=== PATIENT | female | born 1945 | race Hispanic/Latino ===

== ENCOUNTER → 2023-10-18 | Outpatient (REF) | payer MEDICARE ==
[~2023-10-18] MED LIST: AMLODIPINE BESY10 MG PO; BENAZEPRIL HCL10 MG PO; DIATRIZOATE MEGL/DIATRIZOA SOD 30 ML BTL PO ONE; DICYCLOMINE HCL10 MG PO; IOPAMIDOL 370 MG/ML 100 ML INFUS..BTL INJ ONE; PANTOPRAZOLE SO40 MG PO
[2023-10-18 12:56] LABS: CREATININE, SERUM 0.68 mg/dL (0.57-1.11)
== END ==
LOC: CT 11:21
PROVIDERS: ATTEND Nurse Practitioner
DX: R10.32 Left lower quadrant pain (principal); D64.89 Other specified anemias; R63.4 Abnormal weight loss; R63.0 Anorexia
CPT/HCPCS: 36415; 74177; 82565; 84520; Q9963; Q9967

== ENCOUNTER → 2024-05-07 | Day surgery (SDC) | payer MEDICARE ==
[~2024-05-07] MED LIST changes: +ASPIRIN EC81 MG PO; +B12 ACTIVE1000 MCG IM; +CALTRATE GUMMY1 EACH PO; +CILOSTAZOL50 MG PO; -DIATRIZOATE MEGL/DIATRIZOA SOD 30 ML BTL PO ONE; +FOLIC ACID0.4 MG PO; +HYOSCYAMINE SULFATE 0.5 MG/ML INJ ONE; +INTEGRA F CAPS1 EACH PO; -IOPAMIDOL 370 MG/ML 100 ML INFUS..BTL INJ ONE; +JARDIANCE10 MG PO; +LOSARTAN POTAS100 MG PO; +NIFEDIPINE ER30 M1 PO; +PROBIOTIC & AC1 EACH PO; +VITAMIN D PO
[2024-05-07] MEDS: LACTATED RINGER'S 1,000 ML ONE (12:55)
[2024-05-07 13:40] LABS: BASOPHILS % 0.3 % (0.0-1.0); EOSINOPHILS % 0.4 % (0.0-6.0); HEMATOCRIT 24.6 % (34.2-44.1); LYMPHOCYTES # (AUTO) 1.5 (1.0-3.2); LYMPHOCYTES % 21.4 % (18.0-39.1); MEAN CORPUSCULAR HGB CONC 32.5 g/dL (31-35); MEAN CORPUSCULAR VOLUME 104.7 fL (81-99); MONOCYTES # (AUTO) 0.6 (0.2-0.8); MONOCYTES % 8.3 % (4.4-11.3); NEUTROPHILS # (AUTO) 4.8 (2.1-6.9); NEUTROPHILS % 68.9 % (38.7-80.0); PLATELET COUNT 456 x10e3/uL (140-360); RED BLOOD COUNT 2.35 x10e6/uL (3.6-5.1); WHITE BLOOD COUNT 7.01 x10e3/uL (4.8-10.8)
[2024-05-07 16:16] VITALS: TEMP 97.6
[2024-05-07 16:45] VITALS: BP 171/58; PULSE 57; RESP 16; O2SAT 98
[2024-05-07 17:08] LABS: CDIFF AG QUIK CHEK NEGATIVE (NEGATIVE); CDIFF TOX QUIK CHEK NEGATIVE (NEGATIVE); WBC,FECAL (FECAL LACTOFERRIN) NEGATIVE (NEGATIVE)
[2024-05-08 07:54] LABS: C-REACTIVE PROTEIN 1 mg/L (0-10)
[2024-05-10 07:24] LABS: ENDOMYSIAL ANTIBODIES, IGA Negative (Negative)
[2024-05-10 09:07] LABS: IMMUNOGLOBULIN A 139 mg/dL (64-422); TISSUE TRANSGLUTAMINASE IGA AB <2 U/mL (0-3)
== END | disposition home or self-care (01) ==
LOC: OR 11:19
PROVIDERS: ATTEND Internal Medicine Gastroenterology
DX: D64.89 Other specified anemias (principal); D12.4 Benign neoplasm of descending colon; K29.50 Unspecified chronic gastritis without bleeding; K31.89 Other diseases of stomach and duodenum; K51.50 Left sided colitis without complications; K20.90 Esophagitis, unspecified without bleeding; K21.9 Gastro-esophageal reflux disease without esophagitis; K44.9 Diaphragmatic hernia without obstruction or gangrene; K62.89 Other specified diseases of anus and rectum; Z71.3 Dietary counseling and surveillance; R63.4 Abnormal weight loss; E11.9 Type 2 diabetes mellitus without complications; I10 Essential (primary) hypertension; Z71.89 Other specified counseling; M81.0 Age-related osteoporosis without current pathological fracture; E78.00 Pure hypercholesterolemia, unspecified; Z79.84 Long term (current) use of oral hypoglycemic drugs; Z79.82 Long term (current) use of aspirin; Z79.899 Other long term (current) drug therapy; Z87.11 Personal history of peptic ulcer disease; Z87.19 Personal history of other diseases of the digestive system; Z80.0 Family history of malignant neoplasm of digestive organs
CPT/HCPCS: 36415; 43239; 45380; 45385; 82607; 82746; 82784; 82948; 83516; 83630; 83993; 85025; 86140; 86256; 87045; 87177; 87324; 87328; 87449; 93005; J1980; J2470; J7121; 45378

== ENCOUNTER 2024-08-12 05:49 | Inpatient (IN) | payer MEDICARE ==
[~2024-08-12] VITALS: Ht 149.9 cm; Wt 38.6 kg
[~2024-08-12 05:49] MED LIST changes: -HYOSCYAMINE SULFATE 0.5 MG/ML INJ ONE
[2024-08-12 06:05] VITALS: PULSE 81; RESP 18
[2024-08-12 06:30] LABS: BASOPHILS % 0.2 % (0.0-1.0); HEMATOCRIT 23.2 % (34.2-44.1); HEMOGLOBIN 7.6 g/dL (12.0-16.0); LYMPHOCYTES % 19.6 % (18.0-39.1); MEAN CORPUSCULAR HEMOGLOBIN 35.2 pg (28-32); MEAN CORPUSCULAR HGB CONC 32.8 g/dL (31-35); MEAN CORPUSCULAR VOLUME 107.4 fL (81-99); MONOCYTES # (AUTO) 0.6 (0.2-0.8); MONOCYTES % 11.3 % (4.4-11.3); NEUTROPHILS # (AUTO) 3.5 (2.1-6.9); NEUTROPHILS % 68.5 % (38.7-80.0); PLATELET COUNT 356 x10e3/uL (140-360); RED BLOOD COUNT 2.16 x10e6/uL (3.6-5.1); RED CELL DISTRIBUTION WIDTH 17.5 % (11.7-14.4); WHITE BLOOD COUNT 5.14 x10e3/uL (4.8-10.8)
[2024-08-12 06:47] LABS: INR 1.16; PROTHROMBIN TIME 15.5 seconds (11.9-14.5)
[2024-08-12 06:48] LABS: CLARITY,URINE CLEAR (CLEAR); COLOR,URINE AMBER (YELLOW); LEUKOCYTE ESTERASE ,URINE NEGATIVE (NEGATIVE); NITRITE,URINE NEGATIVE (NEGATIVE); PH,URINE 6 (5 - 7); PROTEIN,URINE DIPSTICK >=300 (NEGATIVE)
[2024-08-12 06:48] LABS: PARTIAL THROMBOPLASTIN TIME 20.3 seconds (23.8-35.5)
[2024-08-12 06:49] LABS: BILIRUBIN,URINE SMALL (NEGATIVE); GLUCOSE, URINE 2+ (NEGATIVE); KETONES,URINE NEGATIVE (NEGATIVE); URINE UROBILINOGEN 0.2 mg/dL (0.2 - 1)
[2024-08-12 06:51] LABS: BACTERIA,URINE MANY /HPF; EPITHELIAL CELLS,URINE FEW /LPF; MUCUS,URINE MODERATE; RBC,URINE 0-5 /HPF (0-5)
[2024-08-12 06:58] LABS: ALBUMIN 3.1 g/dL (3.5-5.0); ALBUMIN/GLOBULIN RATIO 0.8 (0.8-2.0); ANION GAP 16.3 mmol/L (8-16); CALCIUM 9.1 mg/dL (8.4-10.2); CREATININE, SERUM 0.7 mg/dL (0.57-1.11); MAGNESIUM 1.3 MG/DL (1.3-2.1); TOTAL PROTEIN 6.8 g/dL (6.5-8.1)
[2024-08-12 07:03] LABS: TROPONIN I 0.049 ng/mL (0-0.300)
[2024-08-12 07:07] LABS: POTASSIUM 3.3 mmol/L (3.5-5.1)
[2024-08-12] MEDS: ONDANSETRON HCL INJ 2MG/ML 2ML 2 MG/ML VIAL IV STA (07:31)
[2024-08-12] MEDS: SODIUM CHLORIDE 0.9% 1000ML 1,000 ML IV STA (07:32)
[2024-08-12] MEDS ORDERED: ONDANSETRON HCL INJ 2MG/ML 2ML 2 MG/ML VIAL IV PRN (09:15)
[2024-08-12] MEDS: SODIUM CHLORIDE 0.9% 1000ML 1,000 ML IV SCH (09:30)
[2024-08-12 09:45] LABS: FOLATE 18.8 ng/mL (7.0-15.4)
[2024-08-12 10:40] LABS: FERRITIN 191.94 ng/mL (4.63-204.00)
[2024-08-12 12:50] VITALS: BP 156/42; PULSE 92; RESP 16; TEMP 97.9; O2SAT 98
[2024-08-12] MEDS: MAGNESIUM SULFATE 2GM/50ML 50 ML IV ONE (13:27)
[2024-08-12 16:35] LABS: TROPONIN I 0.06 ng/mL (0-0.300)
[2024-08-12 17:08] VITALS: BP 136/34; PULSE 85; RESP 19; TEMP 100.6; O2SAT 100
[2024-08-12 20:15] VITALS: BP 159/66; PULSE 94; RESP 21; TEMP 99.6; O2SAT 99
[2024-08-12 20:38] LABS: TROPONIN I 0.047 ng/mL (0-0.300)
[2024-08-12 22:20] VITALS: BP 159/66; PULSE 94; RESP 21; TEMP 99.6; O2SAT 99
[2024-08-13] VITALS (7 sets, daily range): BP systolic 123–140; BP diastolic 41–51; PULSE 72–85; RESP 18–21; TEMP 97.4–99.1; O2SAT 97–100
[2024-08-13] MEDS: METOCLOPRAMIDE HCL 10 MG/2ML VIAL IV ONE (00:11)
[2024-08-13 05:34] LABS: BASOPHILS % 0.2 % (0.0-1.0); EOSINOPHILS # (AUTO) 0.1 (0.0-0.4); EOSINOPHILS % 0.5 % (0.0-6.0); HEMATOCRIT 28.5 % (34.2-44.1); HEMOGLOBIN 9.2 g/dL (12.0-16.0); LYMPHOCYTES # (AUTO) 1.9 (1.0-3.2); LYMPHOCYTES % 12.6 % (18.0-39.1); MEAN CORPUSCULAR HEMOGLOBIN 29.3 pg (28-32); MEAN CORPUSCULAR HGB CONC 32.3 g/dL (31-35); MEAN CORPUSCULAR VOLUME 90.8 fL (81-99); MONOCYTES # (AUTO) 0.8 (0.2-0.8); MONOCYTES % 5.2 % (4.4-11.3); NEUTROPHILS # (AUTO) 11.9 (2.1-6.9); NEUTROPHILS % 80.8 % (38.7-80.0); PLATELET COUNT 281 x10e3/uL (140-360); RED BLOOD COUNT 3.14 x10e6/uL (3.6-5.1)
[2024-08-13 06:05] LABS: ALBUMIN 2.8 g/dL (3.5-5.0); ALBUMIN/GLOBULIN RATIO 0.7 (0.8-2.0); ANION GAP 16.7 mmol/L (8-16); BILIRUBIN,TOTAL 0.8 mg/dL (0.2-1.2); CALCIUM 9.4 mg/dL (8.4-10.2); CREATININE, SERUM 1.67 mg/dL (0.57-1.11); POTASSIUM 3.7 mmol/L (3.5-5.1); TOTAL PROTEIN 6.6 g/dL (6.5-8.1)
[2024-08-13] MEDS: IRON SUCROSE 100 MG in SODIUM CHLORIDE 0.9% 100 ML IV SCH (09:30)
[2024-08-13] MEDS: METOCLOPRAMIDE HCL 10 MG/2ML VIAL IV SCH (09:30)
[2024-08-13] MEDS ORDERED: DEXTROSE 50% SYRINGE 50 ML IV PRN (10:00)
[2024-08-13] MEDS ORDERED: MAGNESIUM SULFATE 2GM/50ML IV ONE (10:00)
[2024-08-13 10:37] LABS: CDIFF AG QUIK CHEK NEGATIVE (NEGATIVE); CDIFF TOX QUIK CHEK NEGATIVE (NEGATIVE)
[2024-08-13] MEDS: INSULIN LISPRO 100 UNIT/1 ML 3ML VIAL SQ SCH (11:30)
[2024-08-13] MEDS: METRONIDAZOLE 500MG/NS 100ML 100 ML IV SCH (11:57)
[2024-08-13] MEDS: VANCOMYCIN HCL 125 MG CAPSULE PO SCH (11:58)
[2024-08-13] MEDS: DICYCLOMINE HCL 10 MG CAP PO SCH (11:58)
[2024-08-13] MEDS: MAGNESIUM SULFATE 2GM/50ML 50 ML IV ONE (15:25)
[2024-08-13] MEDS: LACTOBACILLUS ACIDOPHILUS CAPSULE PO SCH (17:04)
[2024-08-13] MEDS: CILOSTAZOL 100 MG TAB PO SCH (17:05)
[2024-08-14] VITALS (9 sets, daily range): BP systolic 110–152; BP diastolic 47–72; PULSE 55–92; RESP 17–20; TEMP 97.5–98.8; O2SAT 93–100
[2024-08-14] MEDS: DIPHENOXYLATE/ATROPINE TAB PO ONE (01:13)
[2024-08-14 07:24] LABS: PHOSPHORUS 1.7 MG/DL (2.3-4.7)
[2024-08-14 07:37] LABS: ANION GAP 10.2 mmol/L (8-16); CALCIUM 7.3 mg/dL (8.4-10.2); CREATININE, SERUM 0.57 mg/dL (0.57-1.11)
[2024-08-14 07:43] LABS: POTASSIUM 2.2 mmol/L (3.5-5.1)
[2024-08-14 08:31] LABS: BASOPHILS % 0.2 % (0.0-1.0); EOSINOPHILS # (AUTO) 0.1 (0.0-0.4); EOSINOPHILS % 1.5 % (0.0-6.0); LYMPHOCYTES # (AUTO) 1.2 (1.0-3.2); MEAN CORPUSCULAR HGB CONC 31.8 g/dL (31-35); MEAN CORPUSCULAR VOLUME 110.2 fL (81-99); MONOCYTES # (AUTO) 0.4 (0.2-0.8); MONOCYTES % 8.8 % (4.4-11.3); NEUTROPHILS # (AUTO) 3.1 (2.1-6.9); NEUTROPHILS % 64.5 % (38.7-80.0); PLATELET COUNT 368 x10e3/uL (140-360); RED BLOOD COUNT 1.77 x10e6/uL (3.6-5.1); WHITE BLOOD COUNT 4.79 x10e3/uL (4.8-10.8)
[2024-08-14] MEDS: IRON SUCROSE 100 MG in SODIUM CHLORIDE 0.9% 100 ML IV SCH (09:00)
[2024-08-14 09:01] LABS: HEMATOCRIT 19.5 % (34.2-44.1); HEMOGLOBIN 6.2 g/dL (12.0-16.0)
[2024-08-14] MEDS: SOD CHL 0.45%/POT CHL 20MEQ 1,000 ML IV SCH (09:16)
[2024-08-14] MEDS: FOLIC ACID 1 MG TAB PO SCH (09:18)
[2024-08-14] MEDS: EMPAGLIFLOZIN 10 MG TABLET PO SCH (09:18)
[2024-08-14] MEDS: ASPIRIN 81 MG ENTERIC COATED PO SCH (09:18)
[2024-08-14] MEDS: NIFEDIPINE CR 30 MG TAB PO SCH (09:20)
[2024-08-14] MEDS: DICYCLOMINE HCL 20 MG TAB PO SCH (09:20)
[2024-08-14] MEDS: POTASSIUM CHLORIDE 10MEQ EA PO SCH (09:21)
[2024-08-14] MEDS ORDERED: ACETAMINOPHEN 325 MG TAB PO STA (09:43)
[2024-08-14] MEDS ORDERED: DIPHENHYDRAMINE HCL INJ 50 MG/ML VIAL IV ONE (09:45)
[2024-08-14] MEDS ORDERED: FAMOTIDINE 20 MG/2 ML VIAL IV ONE (09:45)
[2024-08-14] MEDS ORDERED: DEXAMETHASONE SOD PHOS 10 MG/1 ML VIAL IV ONE (09:45)
[2024-08-14] MEDS: MAGNESIUM SULFATE 2GM/50ML 50 ML IV ONE (12:33)
[2024-08-14] MEDS: POTASSIUM PHOSPHATE 30 MM in SODIUM CHLORIDE 0.9% 250ML 250 ML IV ONE (14:41)
[2024-08-14] MEDS: DEXAMETHASONE SOD PHOS 10 MG/1 ML VIAL IV ONE (15:55)
[2024-08-14] MEDS: FAMOTIDINE 20 MG/2 ML VIAL IV ONE (15:55)
[2024-08-14] MEDS: DIPHENHYDRAMINE HCL INJ 50 MG/ML VIAL IV ONE (15:55)
[2024-08-14] MEDS: ACETAMINOPHEN 325 MG TAB PO ONE (15:56)
[2024-08-14] MEDS: FUROSEMIDE INJ 10 MG/ML 2 ML VIAL IV PRN (20:04)
[2024-08-15] VITALS (7 sets, daily range): BP systolic 94–191; BP diastolic 60–76; PULSE 70–81; RESP 18–20; TEMP 97.3–97.9; O2SAT 98–100
[2024-08-15] MEDS: SODIUM CHLORIDE 0.9% 250ML 250 ML IV ONE (06:59)
[2024-08-15] MEDS: SODIUM CHLORIDE 0.9% 250ML 250 ML ONE ×2 (06:59)
[2024-08-15 13:21] LABS: ANION GAP 16.2 mmol/L (8-16); CALCIUM 8.2 mg/dL (8.4-10.2); CREATININE, SERUM 0.65 mg/dL (0.57-1.11); MAGNESIUM 1.7 MG/DL (1.3-2.1); PHOSPHORUS 3.1 MG/DL (2.3-4.7); POTASSIUM 4.2 mmol/L (3.5-5.1)
[2024-08-15 14:54] LABS: BASOPHILS % 0.2 % (0.0-1.0); EOSINOPHILS % 0.3 % (0.0-6.0); HEMATOCRIT 33.4 % (34.2-44.1); HEMOGLOBIN 11.3 g/dL (12.0-16.0); LYMPHOCYTES # (AUTO) 1.6 (1.0-3.2); MEAN CORPUSCULAR HEMOGLOBIN 32.2 pg (28-32); MEAN CORPUSCULAR HGB CONC 33.8 g/dL (31-35); MEAN CORPUSCULAR VOLUME 95.2 fL (81-99); MONOCYTES % 7.9 % (4.4-11.3); NEUTROPHILS # (AUTO) 10.3 (2.1-6.9); NEUTROPHILS % 78.6 % (38.7-80.0); PLATELET COUNT 332 x10e3/uL (140-360); RED BLOOD COUNT 3.51 x10e6/uL (3.6-5.1); RED CELL DISTRIBUTION WIDTH 19.2 % (11.7-14.4); WHITE BLOOD COUNT 13.13 x10e3/uL (4.8-10.8)
[2024-08-15] MEDS: NIFEDIPINE CR 30 MG TAB PO SCH (16:17)
[2024-08-16] VITALS: BP 158/70; PULSE 92; RESP 19; TEMP 99; O2SAT 97
[2024-08-16] MEDS: ACETAMINOPHEN 325 MG TAB PO PRN (00:37)
[2024-08-16 04:00] VITALS: BP 140/51; PULSE 81; RESP 20; TEMP 98.7; O2SAT 98
[2024-08-16 06:43] LABS: BASOPHILS % 0.2 % (0.0-1.0); EOSINOPHILS % 0.3 % (0.0-6.0); HEMATOCRIT 31.4 % (34.2-44.1); HEMOGLOBIN 10.4 g/dL (12.0-16.0); LYMPHOCYTES # (AUTO) 1.2 (1.0-3.2); LYMPHOCYTES % 18.3 % (18.0-39.1); MEAN CORPUSCULAR HEMOGLOBIN 32.5 pg (28-32); MEAN CORPUSCULAR HGB CONC 33.1 g/dL (31-35); MEAN CORPUSCULAR VOLUME 98.1 fL (81-99); MONOCYTES # (AUTO) 0.7 (0.2-0.8); MONOCYTES % 11.2 % (4.4-11.3); NEUTROPHILS # (AUTO) 4.5 (2.1-6.9); NEUTROPHILS % 69.1 % (38.7-80.0); PLATELET COUNT 280 x10e3/uL (140-360); RED CELL DISTRIBUTION WIDTH 19.1 % (11.7-14.4); WHITE BLOOD COUNT 6.51 x10e3/uL (4.8-10.8)
[2024-08-16 07:09] LABS: ANION GAP 10.7 mmol/L (8-16); CALCIUM 7.8 mg/dL (8.4-10.2); CREATININE, SERUM 0.58 mg/dL (0.57-1.11); POTASSIUM 3.7 mmol/L (3.5-5.1)
[2024-08-16 07:57] VITALS: BP 140/51; PULSE 81; RESP 20; TEMP 98.7; O2SAT 98
[2024-08-16 08:30] VITALS: BP 179/42; PULSE 75; RESP 20; TEMP 98.2; O2SAT 97
[2024-08-16 12:21] VITALS: BP 160/61; PULSE 77; RESP 18; TEMP 97.6; O2SAT 100
== END 2024-08-16 12:04 | disposition home or self-care (01) | DRG 872 ==
LOC: ER 06:08 → ERHOLD 09:17 → MED/SURG3 11:59
PROVIDERS: ADMIT Internal Medicine; ATTEND Internal Medicine
PROC: 3E03329 Introduction of Other Anti-infective into Peripheral Vein, Percutaneous Approach (ICD-10-PCS; 2024-08-12)
PROC: 30233N1 Transfusion of Nonautologous Red Blood Cells into Peripheral Vein, Percutaneous Approach (ICD-10-PCS; principal; 2024-08-14)
DX: A41.51 Sepsis due to Escherichia coli [E. coli] (principal); N39.0 Urinary tract infection, site not specified; Z68.1 Body mass index [BMI] 19.9 or less, adult; A09 Infectious gastroenteritis and colitis, unspecified; E86.0 Dehydration; E87.6 Hypokalemia; E83.39 Other disorders of phosphorus metabolism; D50.9 Iron deficiency anemia, unspecified; E87.8 Other disorders of electrolyte and fluid balance, not elsewhere classified; D46.9 Myelodysplastic syndrome, unspecified; E83.51 Hypocalcemia; I10 Essential (primary) hypertension; E11.51 Type 2 diabetes mellitus with diabetic peripheral angiopathy without gangrene; Z79.84 Long term (current) use of oral hypoglycemic drugs; Z71.3 Dietary counseling and surveillance; E78.5 Hyperlipidemia, unspecified; Z79.899 Other long term (current) drug therapy; Z79.82 Long term (current) use of aspirin; Z90.49 Acquired absence of other specified parts of digestive tract; Z95.2 Presence of prosthetic heart valve; Z89.512 Acquired absence of left leg below knee
CPT/HCPCS: 36415; 71045; 74176; 80048; 80053; 81001; 82550; 82607; 82728; 82746; 82948; 83036; 83540; 83630; 83690; 83735; 83993; 84100; 84466; 84484; 85025; 85610; 85730; 86850; 86900; 86920; 87045; 87086; 87177; 87186; 87324; 87449; 93005; 99252; 99285; J0696; J1100; J1200; J1756; J1940; J2405; J2470; J2543; J2765; J3475; J7030; J7050; P9016

== ENCOUNTER 2024-12-11 17:04 | Inpatient (IN) | payer MEDICARE ==
[~2024-12-11] VITALS: Ht 149.9 cm; Wt 37.6 kg
[~2024-12-11 17:04] MED LIST changes: +B12 PO; +COLESTIPOL HCL1 GM PO; +WEEKLY-D1250 MCG PO
[2024-12-11 17:17] VITALS: TEMP 98.6
[2024-12-11 18:54] LABS: BASOPHILS % 0.1 % (0.0-1.0); EOSINOPHILS % 0.3 % (0.0-6.0); HEMOGLOBIN 7.5 g/dL (12.0-16.0); LYMPHOCYTES # (AUTO) 2.7 (1.0-3.2); LYMPHOCYTES % 35.5 % (18.0-39.1); MEAN CORPUSCULAR HEMOGLOBIN 30.5 pg (28-32); MEAN CORPUSCULAR HGB CONC 32.8 g/dL (31-35); MEAN CORPUSCULAR VOLUME 93.1 fL (81-99); MONOCYTES # (AUTO) 0.6 (0.2-0.8); MONOCYTES % 7.5 % (4.4-11.3); NEUTROPHILS # (AUTO) 4.3 (2.1-6.9); NEUTROPHILS % 55.9 % (38.7-80.0); PLATELET COUNT 279 x10e3/uL (140-360); RED BLOOD COUNT 2.46 x10e6/uL (3.6-5.1); RED CELL DISTRIBUTION WIDTH 19.3 % (11.7-14.4); WHITE BLOOD COUNT 7.63 x10e3/uL (4.8-10.8)
[2024-12-11 18:56] LABS: HEMATOCRIT 22.9 % (34.2-44.1)
[2024-12-11 19:14] LABS: ALBUMIN 2.3 g/dL (3.5-5.0); ALBUMIN/GLOBULIN RATIO 0.7 (0.8-2.0); ANION GAP 12.3 mmol/L (8-16); BILIRUBIN,TOTAL 1.1 mg/dL (0.2-1.2); CALCIUM 7.8 mg/dL (8.4-10.2); CREATININE, SERUM 0.56 mg/dL (0.57-1.11); POTASSIUM 3.3 mmol/L (3.5-5.1); TOTAL PROTEIN 5.6 g/dL (6.5-8.1)
[2024-12-11] MEDS ORDERED: HEPARIN SOD/DEXTROSE 5% 25000 UNIT/250 ML BAG IV SCH (19:15)
[2024-12-11 19:16] LABS: INR 1.1; PROTHROMBIN TIME 15.2 seconds (11.9-14.5)
[2024-12-11 19:17] LABS: PARTIAL THROMBOPLASTIN TIME 32.3 seconds (23.8-35.5)
[2024-12-11 19:19] LABS: TROPONIN I 0.057 ng/mL (0-0.300)
[2024-12-11 19:30] VITALS: PULSE 55; RESP 12
[2024-12-11] MEDS ORDERED: Morphine 4mg INJECTION 4 MG/ML INJ IV PRN (19:45)
[2024-12-11] MEDS ORDERED: ONDANSETRON HCL INJ 2MG/ML 2ML 2 MG/ML VIAL IV PRN (19:45)
[2024-12-11] MEDS: HEPARIN SOD (PORCINE) 5,000 UNIT/ML VIAL IV ONE (20:03)
[2024-12-11] MEDS: HEPARIN 25,000 UNIT/D5W 250ML 250 ML IV SCH (21:14)
[2024-12-11 21:37] VITALS: BP 153/54; PULSE 91; RESP 16; TEMP 98.1; O2SAT 100
[2024-12-11 21:43] VITALS: BP 153/54; PULSE 91; RESP 16; TEMP 98.1; O2SAT 100
[2024-12-11 22:04] VITALS: BP 153/54; PULSE 91; RESP 18; TEMP 98.1; O2SAT 99
[2024-12-12] VITALS (7 sets, daily range): BP systolic 110–146; BP diastolic 40–53; PULSE 75–96; RESP 16–17; TEMP 97.6–98.1; O2SAT 96–99
[2024-12-12 06:06] LABS: BASOPHILS % 0.3 % (0.0-1.0); EOSINOPHILS % 0.3 % (0.0-6.0); LYMPHOCYTES # (AUTO) 1.9 (1.0-3.2); LYMPHOCYTES % 27.8 % (18.0-39.1); MEAN CORPUSCULAR HEMOGLOBIN 30.6 pg (28-32); MEAN CORPUSCULAR HGB CONC 33.2 g/dL (31-35); MEAN CORPUSCULAR VOLUME 92.3 fL (81-99); MONOCYTES # (AUTO) 0.5 (0.2-0.8); MONOCYTES % 7.2 % (4.4-11.3); NEUTROPHILS # (AUTO) 4.4 (2.1-6.9); PLATELET COUNT 294 x10e3/uL (140-360); RED BLOOD COUNT 2.35 x10e6/uL (3.6-5.1); RED CELL DISTRIBUTION WIDTH 19.9 % (11.7-14.4); WHITE BLOOD COUNT 6.81 x10e3/uL (4.8-10.8)
[2024-12-12 06:14] LABS: HEMATOCRIT 21.7 % (34.2-44.1); HEMOGLOBIN 7.2 g/dL (12.0-16.0)
[2024-12-12 06:40] LABS: ALBUMIN 1.9 g/dL (3.5-5.0); ALBUMIN/GLOBULIN RATIO 0.7 (0.8-2.0); ANION GAP 12.7 mmol/L (8-16); CALCIUM 7.2 mg/dL (8.4-10.2); CREATININE, SERUM 0.52 mg/dL (0.57-1.11); TOTAL PROTEIN 4.7 g/dL (6.5-8.1)
[2024-12-12 06:47] LABS: POTASSIUM 2.7 mmol/L (3.5-5.1)
[2024-12-12 07:09] LABS: TROPONIN I 0.052 ng/mL (0-0.300)
[2024-12-12] MEDS ORDERED: FUROSEMIDE INJ 10 MG/ML 2 ML VIAL IV PRN (08:45)
[2024-12-12] MEDS: NIFEDIPINE CR 30 MG TAB PO SCH (09:00)
[2024-12-12] MEDS: AMIODARONE HCL 200 MG TAB PO SCH (09:00)
[2024-12-12] MEDS: COLESTIPOL HCL 1 G TAB PO SCH (09:00)
[2024-12-12] MEDS: EMPAGLIFLOZIN 10 MG TABLET PO SCH (09:00)
[2024-12-12] MEDS ORDERED: APIXABAN 5 MG TABLET PO SCH ×2 (09:00)
[2024-12-12] MEDS: PANTOPRAZOLE SOD 40 MG TABEC PO SCH (09:00)
[2024-12-12] MEDS: CILOSTAZOL 100 MG TAB PO SCH (09:00)
[2024-12-12] MEDS: NON-FORMULARY MEDICATION (Folic Acid* 1 MG) PO SCH (09:00)
[2024-12-12 09:11] LABS: PHOSPHORUS 2.4 MG/DL (2.3-4.7)
[2024-12-12 09:54] LABS: MAGNESIUM 0.6 MG/DL (1.3-2.1)
[2024-12-12] MEDS: LACTOBACILLUS ACIDOPHILUS CAPSULE PO SCH (10:40)
[2024-12-12] MEDS: POTASSIUM CHLORIDE 10MEQ EA PO SCH (10:40)
[2024-12-12] MEDS: MAGNESIUM SULFATE 2GM/50ML 50 ML IV ONE ×2 (10:49→13:03)
[2024-12-12] MEDS: SODIUM CHLORIDE 0.9% 250ML 250 ML IV ONE (10:49)
[2024-12-12] MEDS: EPOETIN ALFA-EPBX 10,000 UNIT/ML VIAL SC ONE (13:03)
[2024-12-12 14:10] LABS: CDIFF AG QUIK CHEK NEGATIVE (NEGATIVE); CDIFF TOX QUIK CHEK NEGATIVE (NEGATIVE)
[2024-12-12 14:25] LABS: COLOR,URINE YELLOW (YELLOW)
[2024-12-12 14:26] LABS: CLARITY,URINE TURBID (CLEAR); LEUKOCYTE ESTERASE ,URINE SMALL (NEGATIVE); NITRITE,URINE NEGATIVE (NEGATIVE); PH,URINE 5.5 (5 - 7); PROTEIN,URINE DIPSTICK 2+ (NEGATIVE)
[2024-12-12 14:27] LABS: BILIRUBIN,URINE SMALL (NEGATIVE); GLUCOSE, URINE 500 (NEGATIVE); KETONES,URINE TRACE (NEGATIVE); URINE UROBILINOGEN 0.2 mg/dL (0.2 - 1)
[2024-12-12 14:36] LABS: BACTERIA,URINE MANY /HPF; RBC,URINE 0-5 /HPF (0-5); WBC,URINE (MAN) >50 /HPF (0-5)
[2024-12-12 15:36] LABS: TROPONIN I 0.047 ng/mL (0-0.300)
[2024-12-12] MEDS: DIPHENOXYLATE/ATROPINE TAB PO ONE (16:09)
[2024-12-12] MEDS: DEXAMETHASONE SOD PHOS 10 MG/1 ML VIAL IV ONE (17:04)
[2024-12-12] MEDS: SODIUM CHLORIDE 0.9% 250ML 250 ML ONE (17:06)
[2024-12-12] MEDS: ACETAMINOPHEN 325 MG TAB PO STA (17:06)
[2024-12-12] MEDS: APIXABAN 5 MG TABLET PO SCH (17:45)
[2024-12-12] MEDS: LOSARTAN POTASSIUM 100 MG TAB PO SCH (17:46)
[2024-12-12] MEDS ORDERED: HYDRALAZINE HCL 20 MG/ML VIAL IV PRN (18:00)
[2024-12-12] MEDS: METOPROLOL SUCCINATE 25 MG TAB XL PO SCH (21:00)
[2024-12-13] VITALS (7 sets, daily range): BP systolic 93–150; BP diastolic 43–66; PULSE 66–81; RESP 16–19; TEMP 97–97.9; O2SAT 99–100
[2024-12-13 06:55] LABS: ANION GAP 13.3 mmol/L (8-16); CALCIUM 7.5 mg/dL (8.4-10.2); CREATININE, SERUM 0.71 mg/dL (0.57-1.11)
[2024-12-13 06:59] LABS: BASOPHILS % 0.1 % (0.0-1.0); HEMATOCRIT 32.2 % (34.2-44.1); HEMOGLOBIN 10.7 g/dL (12.0-16.0); LYMPHOCYTES # (AUTO) 1.9 (1.0-3.2); LYMPHOCYTES % 25.1 % (18.0-39.1); MEAN CORPUSCULAR HGB CONC 33.2 g/dL (31-35); MEAN CORPUSCULAR VOLUME 90.2 fL (81-99); MONOCYTES # (AUTO) 0.4 (0.2-0.8); MONOCYTES % 5.2 % (4.4-11.3); NEUTROPHILS # (AUTO) 5.1 (2.1-6.9); NEUTROPHILS % 67.9 % (38.7-80.0); PLATELET COUNT 332 x10e3/uL (140-360); RED BLOOD COUNT 3.57 x10e6/uL (3.6-5.1); RED CELL DISTRIBUTION WIDTH 18.5 % (11.7-14.4); WHITE BLOOD COUNT 7.46 x10e3/uL (4.8-10.8)
[2024-12-13 07:02] LABS: POTASSIUM 5.3 mmol/L (3.5-5.1)
[2024-12-13] MEDS: MESALAMINE 400 MG CAP PO SCH (08:42)
[2024-12-13] MEDS: PANCRELIPASE 6000 ER CAPSULE PO SCH (08:42)
[2024-12-13] MEDS ORDERED: DEXTROSE 50% SYRINGE 50 ML IV PRN (10:15)
[2024-12-13] MEDS: INSULIN LISPRO 100 UNIT/1 ML 3ML VIAL SQ SCH (12:11)
[2024-12-13] MEDS: AMYLAS/CELLU/LIPAS/PROTEA/BILE 12,000 UNIT CAP PO SCH (18:00)
[2024-12-14] VITALS: BP 134/53; PULSE 64; RESP 17; TEMP 98.1; O2SAT 98
[2024-12-14 04:00] VITALS: BP 139/46; PULSE 63; RESP 16; TEMP 97.6; O2SAT 98
[2024-12-14 06:11] LABS: BASOPHILS % 0.2 % (0.0-1.0); EOSINOPHILS % 0.3 % (0.0-6.0); HEMATOCRIT 28.9 % (34.2-44.1); HEMOGLOBIN 9.8 g/dL (12.0-16.0); LYMPHOCYTES # (AUTO) 2.7 (1.0-3.2); LYMPHOCYTES % 26.1 % (18.0-39.1); MEAN CORPUSCULAR HEMOGLOBIN 30.2 pg (28-32); MEAN CORPUSCULAR HGB CONC 33.9 g/dL (31-35); MEAN CORPUSCULAR VOLUME 89.2 fL (81-99); MONOCYTES # (AUTO) 0.6 (0.2-0.8); MONOCYTES % 5.9 % (4.4-11.3); NEUTROPHILS # (AUTO) 6.9 (2.1-6.9); NEUTROPHILS % 66.1 % (38.7-80.0); PLATELET COUNT 224 x10e3/uL (140-360); RED BLOOD COUNT 3.24 x10e6/uL (3.6-5.1); RED CELL DISTRIBUTION WIDTH 19.3 % (11.7-14.4); WHITE BLOOD COUNT 10.47 x10e3/uL (4.8-10.8)
[2024-12-14 06:37] LABS: ANION GAP 11.8 mmol/L (8-16); CALCIUM 7.5 mg/dL (8.4-10.2); CREATININE, SERUM 0.56 mg/dL (0.57-1.11); POTASSIUM 4.8 mmol/L (3.5-5.1)
[2024-12-14 08:22] VITALS: BP 153/57; PULSE 69; RESP 18; TEMP 96; O2SAT 98
[2024-12-14 10:00] VITALS: BP 153/57; PULSE 69; RESP 18; TEMP 96; O2SAT 98
[2024-12-14 12:05] VITALS: BP 156/55; PULSE 69; RESP 18; TEMP 97.3; O2SAT 96
[2024-12-14 16:17] VITALS: BP 156/55
== END 2024-12-14 18:43 | disposition home or self-care (01) | DRG 314 ==
LOC: ER 17:08 → ERHOLD 19:37 → MED/SURG3 20:54
PROVIDERS: ADMIT Internal Medicine; ATTEND Internal Medicine
PROC: 30233N1 Transfusion of Nonautologous Red Blood Cells into Peripheral Vein, Percutaneous Approach (ICD-10-PCS; principal; 2024-12-12)
DX: T82.868A Thrombosis due to vascular prosthetic devices, implants and grafts, initial encounter (principal); E43 Unspecified severe protein-calorie malnutrition; I82.A12 Acute embolism and thrombosis of left axillary vein; Z68.1 Body mass index [BMI] 19.9 or less, adult; I82.B12 Acute embolism and thrombosis of left subclavian vein; I82.612 Acute embolism and thrombosis of superficial veins of left upper extremity; I10 Essential (primary) hypertension; E11.9 Type 2 diabetes mellitus without complications; K86.89 Other specified diseases of pancreas; K52.9 Noninfective gastroenteritis and colitis, unspecified; I48.0 Paroxysmal atrial fibrillation; D46.9 Myelodysplastic syndrome, unspecified; E11.51 Type 2 diabetes mellitus with diabetic peripheral angiopathy without gangrene; R53.81 Other malaise; D63.8 Anemia in other chronic diseases classified elsewhere; M81.0 Age-related osteoporosis without current pathological fracture; D50.9 Iron deficiency anemia, unspecified; I35.0 Nonrheumatic aortic (valve) stenosis; R33.9 Retention of urine, unspecified; Z90.49 Acquired absence of other specified parts of digestive tract; Z79.84 Long term (current) use of oral hypoglycemic drugs; Z87.440 Personal history of urinary (tract) infections; Z89.512 Acquired absence of left leg below knee; Z90.79 Acquired absence of other genital organ(s); Z99.3 Dependence on wheelchair; Z88.8 Allergy status to other drugs, medicaments and biological substances
CPT/HCPCS: 36415; 71045; 80048; 80053; 81001; 82550; 82948; 83036; 83690; 83735; 83880; 84100; 84484; 85025; 85610; 85730; 86850; 86900; 86920; 86922; 87086; 87186; 87324; 87449; 93005; 93971; 96365; 96372; 99252; 99284; J1100; J1644; J1938; J2470; J3475; J7050; P9016

== ENCOUNTER 2025-01-21 23:00 | Emergency (ER) | payer MEDICARE ==
[~2025-01-21] VITALS: Ht 149.9 cm; Wt 37.2 kg
[2025-01-21 23:05] VITALS: TEMP 98
[2025-01-21 23:45] LABS: BASOPHILS % 0.1 % (0.0-1.0); EOSINOPHILS % 0.0 % (0.0-6.0); LYMPHOCYTES % 25.0 % (18.0-39.1); MONOCYTES % 4.7 % (4.4-11.3); NEUTROPHILS % 69.5 % (38.7-80.0); RED CELL DISTRIBUTION WIDTH 19.2 % (11.7-14.4)
[2025-01-21] MEDS: MAGNESIUM/ALUMINUM/SIMETHICONE 30 ML UDC PO ONE (23:49)
[2025-01-21] MEDS: KETOROLAC TROMETHAMINE 30 MG/ML VIAL IV STA (23:50)
[2025-01-21] MEDS: BELLADONNA ALK/PHENOBARBITAL 5 ML UDC PO STA (23:50)
[2025-01-21] MEDS: LIDOCAINE VISC 2% SOLN 15 ML UDC PO ONE (23:50)
[2025-01-22 00:13] LABS: EST GLOMERULAR FILTRATION RATE 61.0 ML/MIN (>=60)
[2025-01-22] MEDS ORDERED: SODIUM CHLORIDE 0.9% 250ML 250 ML IV ONE (00:15)
[2025-01-22] MEDS ORDERED: Morphine 2mg Syringe 2 MG/ML SYR IV PRN (00:15)
[2025-01-22] MEDS ORDERED: ONDANSETRON HCL INJ 2MG/ML 2ML 2 MG/ML VIAL IV PRN (00:15)
[2025-01-22] MEDS ORDERED: IOPAMIDOL 370 MG/ML 100 ML INFUS..BTL INJ ONE (00:26)
[2025-01-22] MEDS ORDERED: LACTATED RINGER'S 1,000 ML ONE (00:33)
[2025-01-22] MEDS: LACTATED RINGER'S 1,000 ML INJ ONE (00:36)
[2025-01-22 01:55] VITALS: PULSE 113; RESP 19; O2SAT 98
[2025-01-22 03:27] VITALS: PULSE 0; RESP 0
[2025-01-22 03:32] VITALS: PULSE 40; O2SAT 70
== END 2025-01-22 03:28 | disposition expired ==
LOC: ER 23:06 → UNDOADMIN 01-22 00:12 → ERHOLD 01-22 00:12 → ER 01-22 03:28
DX: R07.9 Chest pain, unspecified (principal); I46.9 Cardiac arrest, cause unspecified; D64.9 Anemia, unspecified; I10 Essential (primary) hypertension; E11.65 Type 2 diabetes mellitus with hyperglycemia; I48.91 Unspecified atrial fibrillation; E78.5 Hyperlipidemia, unspecified; K21.9 Gastro-esophageal reflux disease without esophagitis; I73.9 Peripheral vascular disease, unspecified; R94.31 Abnormal electrocardiogram [ECG] [EKG]; Z89.512 Acquired absence of left leg below knee
CPT/HCPCS: 36415; 71260; 74177; 80053; 82948; 83690; 83880; 84484; 85025; 86850; 86900; 86920; 86922; 92950; 93005; 94799; 99285; J1885; J2405; J2470; J7121; Q9967; J2270